=== PATIENT | male | born 1965 | race Caucasian/White ===

== ENCOUNTER 2017-08-15 15:59 | Inpatient (IN) | payer OTHER ==
[~2017-08-15] VITALS: Ht 157.5 cm; Wt 81.0 kg
[2017-08-15 17:30] LABS: HEMATOCRIT 52.9 % (39.0-50.0); HEMOGLOBIN 18.4 g/dl (14.0-18.0); IMMATURE GRANULOCYTES 1.3 % (0.0-1.0); MEAN CELL VOLUME 88.2 fL CALC (80.0-100.0); MEAN CORPUSCULAR HGB 30.7 pG CALC (26.0-32.0); MEAN CORPUSCULAR HGB CONC 34.8 g/L CALC (32.0-36.0); PLATELET COUNT 333 thou/uL (130-400)
[2017-08-15 17:42] LABS: MANUAL DIFFERENTIAL YES
[2017-08-15 17:59] LABS: BAND 17 % (0-8)
[2017-08-15 18:02] LABS: ALBUMIN 3.8 g/dL (3.2-5.0); ALKALINE PHOSPHATASE 136 u/l (38-126); AMYLASE 34 u/l (30-110); ANION GAP 13 (6-22 (CALC)); BILIRUBIN, TOTAL 1.9 mg/dL (0.0-1.4); BUN 15 mg/dL (9-20); BUN/CREATININE RATIO 12 (12-20 (CALC)); CALCIUM 9.3 mg/dL (8.4-10.2); CARBON DIOXIDE 35 mmol/l (22-30); CHLORIDE 88 mmol/l (95-108); CREATININE 1.3 mg/dL (0.7-1.3); GFR 58 ML/MIN (>=60 (CALC)); GFR FOR AFR.AMER. > 60 ML/MIN (>=60 (CALC)); GLUCOSE 114 mg/dL (75-110); LIPASE 13 u/l (23-300); SGOT/AST 36 u/l (17-59); SGPT/ALT 21 u/l (21-72); SODIUM 133 mmol/l (137-146); TOTAL PROTEIN 8.7 g/dL (6.3-8.2)
[2017-08-15 20:00] VITALS: BP 93/52
[2017-08-15 21:50] LABS: URINE BILIRUBIN - DIPSTICK NEGATIVE (NEGATIVE); URINE BLOOD DIPSTICK LARGE (NEGATIVE); URINE CLARITY CLEAR; URINE GLUCOSE - DIPSTICK NEGATIVE (NEGATIVE); URINE KETONE NEGATIVE (NEGATIVE); URINE LEUK ESTERASE NEGATIVE (NEGATIVE); URINE NITRITE - DIPSTICK NEGATIVE (Negative); URINE PH 5.5 (4.5-8.0); URINE PROTEIN - DIPSTICK >=300 mg/dL (NEG-TRACE)
[2017-08-15 21:52] LABS: URINE COLOR DK. YELLOW
[2017-08-15 21:56] LABS: COCAINE NEGATIVE (NEGATIVE); URINE RBC TNTC RBC/hpf (0-5); URINE SQUAMOUS EPITHELIAL CELL FEW EPI/hpf (0-FEW)
[2017-08-15 21:57] LABS: BARBITURATES NEGATIVE (NEGATIVE); METHADONE NEGATIVE (NEGATIVE); OXCYCODONE NEGATIVE (NEGATIVE); TETRAHYDROCANNABIONOL POSITIVE (NEGATIVE); TRICYLIC ANTIDEPRESSANTS NEGATIVE (NEGATIVE)
[2017-08-16] VITALS: BP 110/70
[2017-08-16 04:00] VITALS: BP 91/64
[2017-08-16 06:04] LABS: HEMATOCRIT 47.5 % (39.0-50.0); HEMOGLOBIN 16.5 g/dl (14.0-18.0); IMMATURE GRANULOCYTES 1.2 % (0.0-1.0); MEAN CELL VOLUME 89.5 fL CALC (80.0-100.0); MEAN CORPUSCULAR HGB 31.1 pG CALC (26.0-32.0); MEAN CORPUSCULAR HGB CONC 34.7 g/L CALC (32.0-36.0); NEUT# 18.86 thou/uL (1.82-7.42); RED BLOOD COUNT 5.31 mill/uL (4.70-6.10); RED CELL DISTRI WIDTH 14.1 % (11.5-15.5)
[2017-08-16 06:11] LABS: ANION GAP 14 (6-22 (CALC)); BUN 17 mg/dL (9-20); BUN/CREATININE RATIO 16 (12-20 (CALC)); CALCIUM 8.5 mg/dL (8.4-10.2); CARBON DIOXIDE 29 mmol/l (22-30); CHLORIDE 94 mmol/l (95-108); CREATININE 1.1 mg/dL (0.7-1.3); GFR > 60 ML/MIN (>=60 (CALC)); GFR FOR AFR.AMER. > 60 ML/MIN (>=60 (CALC)); GLUCOSE 209 mg/dL (75-110); POTASSIUM 3.8 mmol/l (3.5-5.1); SODIUM 133 mmol/l (137-146)
[2017-08-16 07:34] VITALS: BP 106/76
[2017-08-16 11:56] VITALS: BP 103/72
[2017-08-16 16:26] VITALS: BP 98/66
[2017-08-16 19:00] VITALS: BP 102/65
[2017-08-17] VITALS: BP 114/74
[2017-08-17 04:00] VITALS: BP 114/74
[2017-08-17 05:54] LABS: HEMATOCRIT 45.9 % (39.0-50.0); HEMOGLOBIN 15.6 g/dl (14.0-18.0); IMMATURE GRANULOCYTES 1.3 % (0.0-1.0); MEAN CELL VOLUME 89.6 fL CALC (80.0-100.0); MEAN CORPUSCULAR HGB 30.5 pG CALC (26.0-32.0); NEUT# 20.26 thou/uL (1.82-7.42); RED BLOOD COUNT 5.12 mill/uL (4.70-6.10); RED CELL DISTRI WIDTH 14.2 % (11.5-15.5)
[2017-08-17 05:57] LABS: ANION GAP 15 (6-22 (CALC)); BUN 21 mg/dL (9-20); BUN/CREATININE RATIO 20 (12-20 (CALC)); CALCIUM 8.6 mg/dL (8.4-10.2); CARBON DIOXIDE 31 mmol/l (22-30); CHLORIDE 93 mmol/l (95-108); GFR > 60 ML/MIN (>=60 (CALC)); GFR FOR AFR.AMER. > 60 ML/MIN (>=60 (CALC)); GLUCOSE 178 mg/dL (75-110); POTASSIUM 3.5 mmol/l (3.5-5.1); SODIUM 135 mmol/l (137-146)
[2017-08-17 07:17] VITALS: BP 97/72
[2017-08-17] MEDS ORDERED: ASPIRIN ADULT L81 M2 PO (09:47)
[2017-08-17] MEDS ORDERED: IPRATROPIU0.5 MG/3 M IN (09:47)
[2017-08-17] MEDS ORDERED: LEVAQUIN750 MG PO (09:49)
[2017-08-17] MEDS ORDERED: PREDNISONE10 MG PO (09:49)
== END 2017-08-17 10:21 | disposition home or self-care (01) | DRG 190 ==
LOC: ED 15:59 → ED-I 18:20 → ED 18:41 → MS2 18:42
PROVIDERS: Family Medicine; Nurse Practitioner Family; ADMIT Internal Medicine; ATTEND Internal Medicine
DX: J44.0 Chronic obstructive pulmonary disease with (acute) lower respiratory infection (principal); J18.9 Pneumonia, unspecified organism; E87.1 Hypo-osmolality and hyponatremia; J44.1 Chronic obstructive pulmonary disease with (acute) exacerbation; E11.9 Type 2 diabetes mellitus without complications; I25.10 Atherosclerotic heart disease of native coronary artery without angina pectoris; F17.210 Nicotine dependence, cigarettes, uncomplicated; I10 Essential (primary) hypertension; E86.0 Dehydration; E78.5 Hyperlipidemia, unspecified; E87.6 Hypokalemia; Z87.820 Personal history of traumatic brain injury; Z79.84 Long term (current) use of oral hypoglycemic drugs; Z87.01 Personal history of pneumonia (recurrent); Z98.61 Coronary angioplasty status
CPT/HCPCS: J0692; J1650

== ENCOUNTER 2017-10-05 15:01 | Emergency (ER) | payer OTHER ==
[~2017-10-05] VITALS: Ht 157.5 cm; Wt 86.2 kg
[~2017-10-05 15:01] MED LIST: ASPIRIN ADULT L81 M2 PO; IPRATROPIU0.5 MG/3 M IN; LEVAQUIN750 MG PO; PREDNISONE10 MG PO
[2017-10-05] MEDS ORDERED: PREDNISONE10 MG PO (15:17)
[2017-10-05] MEDS ORDERED: INHALER IN (15:18)
[2017-10-05] MEDS ORDERED: NAPROSYN500 MG PO (15:32)
[2017-10-05] MEDS ORDERED: ZITHROMAX250 MG PO (15:32)
[2017-10-05 15:39] VITALS: BP 116/60
== END 2017-10-05 15:40 | disposition home or self-care (01) | DRG 153 ==
LOC: ED 15:01
DX: J02.9 Acute pharyngitis, unspecified (principal); R05 Cough; R50.9 Fever, unspecified; R51 Headache

== ENCOUNTER 2017-10-15 16:04 | Emergency (ER) | payer OTHER ==
[~2017-10-15] VITALS: Ht 157.5 cm; Wt 80.0 kg
[~2017-10-15 16:04] MED LIST changes: +INHALER IN; +NAPROSYN500 MG PO; +ZITHROMAX250 MG PO
[2017-10-15 16:44] LABS: HEMATOCRIT 46.1 % (39.0-50.0); HEMOGLOBIN 15.5 g/dl (14.0-18.0); IMMATURE GRANULOCYTES 0.6 % (0.0-1.0); MEAN CELL VOLUME 92.4 fL CALC (80.0-100.0); MEAN CORPUSCULAR HGB 31.1 pG CALC (26.0-32.0); MEAN CORPUSCULAR HGB CONC 33.6 g/L CALC (32.0-36.0); NEUT# 14.44 thou/uL (1.82-7.42); RED BLOOD COUNT 4.99 mill/uL (4.70-6.10); RED CELL DISTRI WIDTH 16.2 % (11.5-15.5)
[2017-10-15 17:09] LABS: ALBUMIN 3.6 g/dL (3.2-5.0); ALKALINE PHOSPHATASE 71 u/l (38-126); ANION GAP 17 (6-22 (CALC)); BILIRUBIN, TOTAL 0.9 mg/dL (0.0-1.4); BUN 11 mg/dL (9-20); BUN/CREATININE RATIO 9 (12-20 (CALC)); CARBON DIOXIDE 30 mmol/l (22-30); CHLORIDE 92 mmol/l (95-108); CREATININE 1.2 mg/dL (0.7-1.3); GFR > 60 ML/MIN (>=60 (CALC)); GFR FOR AFR.AMER. > 60 ML/MIN (>=60 (CALC)); GLUCOSE 147 mg/dL (75-110); POTASSIUM 3.7 mmol/l (3.5-5.1); SGOT/AST 22 u/l (17-59); SGPT/ALT 22 u/l (21-72); SODIUM 135 mmol/l (137-146); TOTAL PROTEIN 7.1 g/dL (6.3-8.2)
[2017-10-15 17:21] LABS: URINE BILIRUBIN - DIPSTICK NEGATIVE (NEGATIVE); URINE BLOOD DIPSTICK LARGE (NEGATIVE); URINE COLOR YELLOW; URINE GLUCOSE - DIPSTICK NEGATIVE (NEGATIVE); URINE KETONE NEGATIVE (NEGATIVE); URINE LEUK ESTERASE NEGATIVE (NEGATIVE); URINE NITRITE - DIPSTICK NEGATIVE (Negative); URINE PH 5.5 (4.5-8.0); URINE PROTEIN - DIPSTICK 100 mg/dL (NEG-TRACE)
[2017-10-15 17:21] LABS: MYOGLOBIN 77 ng/mL (0 - 121)
[2017-10-15 17:27] LABS: URINE CLARITY CLEAR
[2017-10-15 17:49] LABS: URINE RBC TNTC RBC/hpf (0-5); URINE SQUAMOUS EPITHELIAL CELL FEW EPI/hpf (0-FEW)
[2017-10-15] MEDS ORDERED: LEVAQUIN750 M1 PO (18:57)
[2017-10-15 19:04] VITALS: BP 132/80
== END 2017-10-15 19:12 | disposition home or self-care (01) | DRG 192 ==
LOC: ED 16:04
PROVIDERS: Emergency Medicine
DX: J44.0 Chronic obstructive pulmonary disease with (acute) lower respiratory infection (principal); F17.210 Nicotine dependence, cigarettes, uncomplicated; J20.9 Acute bronchitis, unspecified; J44.1 Chronic obstructive pulmonary disease with (acute) exacerbation; R06.02 Shortness of breath; R05 Cough; R00.0 Tachycardia, unspecified; R50.9 Fever, unspecified

== ENCOUNTER 2018-08-03 19:56 | Emergency (ER) | payer OTHER ==
[~2018-08-03] VITALS: Ht 157.5 cm; Wt 81.8 kg
[~2018-08-03 19:56] MED LIST changes: +CARVEDILOL6.25 MG PO; +FUROSEMIDE40 MG PO; +LEVAQUIN750 M1 PO; +LOSARTAN POTASS25 MG PO; +METFORMIN500 M2 PO; +MICRO-K10 MEQ PO; +PROVENTIL HFA IN; +SYMBICORT1 AE1 IN
--- NOTE | 2018-08-03 20:26 | NUR ---
BREATHING TREATMENT GIVEN USING MOUTH PEICE. BREATHING TECH. FOR GOOD DEPOSITION TO THE LUNGS.
[2018-08-03 20:30] LABS: HEMATOCRIT 47.8 % (39.0-50.0); HEMOGLOBIN 16.6 g/dl (14.0-18.0); IMMATURE GRANULOCYTES 0.7 % (0.0-5.0); MEAN CELL VOLUME 86.6 fL CALC (80.0-100.0); MEAN CORPUSCULAR HGB 30.1 pG CALC (26.0-32.0); MEAN CORPUSCULAR HGB CONC 34.7 g/L CALC (32.0-36.0); NEUT# 15.18 thou/uL (1.82-7.42); RED BLOOD COUNT 5.52 mill/uL (4.70-6.10); RED CELL DISTRI WIDTH 13.9 % (11.5-15.5)
[2018-08-03] MEDS ORDERED: PREDNISONE10 MG PO (21:13)
[2018-08-03] MEDS ORDERED: DOXYCYCL HYC100 MG PO (21:13)
[2018-08-03 21:45] VITALS: BP 114/73
== END 2018-08-03 21:51 | disposition home or self-care (01) ==
LOC: ED 19:56
PROVIDERS: Family Medicine
DX: J44.1 Chronic obstructive pulmonary disease with (acute) exacerbation (principal); E11.9 Type 2 diabetes mellitus without complications; I10 Essential (primary) hypertension; I25.2 Old myocardial infarction; Z95.0 Presence of cardiac pacemaker; Z87.891 Personal history of nicotine dependence; R06.02 Shortness of breath; R05 Cough

== ENCOUNTER 2019-07-31 14:43 | Inpatient (IN) | payer OTHER ==
[~2019-07-31] VITALS: Ht 157.5 cm; Wt 102.6 kg
[~2019-07-31 14:43] MED LIST changes: +DOXYCYCL HYC100 MG PO; -FUROSEMIDE40 MG PO; +LASIX40 MG PO
--- NOTE | 2019-07-31 14:43 | NUR ---
PATIENT TO ROOM VIA WHEELCHAIR AND PHYSICIAN AT BEDSIDE FOR EVAL
--- NOTE | 2019-07-31 14:45 | NUR ---
PT REFUSES TO WEAR A GOWN.
--- NOTE | 2019-07-31 15:00 | NUR ---
PT PRESENTS SOB. PAIN 0/10. AUDITORY WHEEZING DETECTED. LUNGS WHEEZING BILATERALLY. ABDOMEN NON TENDER, DISTENDED. INTERCOASTAL RETRACTIONS NOTED. PT IN TRIPOD POSITION. PT IN PT PRESENTS WITH A O2SAT OF 89%. EKG DONE AT 1445. MD IN ROOM. CALL LIGHT WITHIN REACH WILL CONTINUE TO MONITOR.
[2019-07-31 15:11] LABS: HEMATOCRIT 47.8 % (39.0-50.0); HEMOGLOBIN 16.2 g/dl (14.0-18.0); IMMATURE GRANULOCYTES 0.6 % (0.0-5.0); MEAN CELL VOLUME 86.1 fL CALC (80.0-100.0); MEAN CORPUSCULAR HGB 29.2 pG CALC (26.0-32.0); MEAN CORPUSCULAR HGB CONC 33.9 g/L CALC (32.0-36.0); NEUT# 13.75 thou/uL (1.82-7.42); RED BLOOD COUNT 5.55 mill/uL (4.70-6.10); RED CELL DISTRI WIDTH 13.9 % (11.5-15.5)
--- NOTE | 2019-07-31 15:20 | NUR ---
PT LUNG SOUNDS WHEEZING BILATERALLY. PT EFFORT IN BREATHING DECREASED. PT HOB ELEVATED AND DENIES ANY NEEDS AT THIS TIME.
--- NOTE | 2019-07-31 15:40 | NUR ---
PT AOX4 RESTING ON STRETCHER. CALL LIGHT WITHIN REACH. PLAN OF CARE DISCUSSED WITH PT AND WAIT TIME. WILL CONTINUE TO MONITOR.
[2019-07-31] MEDS ORDERED: CARVEDILOL12.5 MG PO (15:41)
[2019-07-31] MEDS ORDERED: PROVENTIL108 MCG/AC IN (15:41)
[2019-07-31] MEDS ORDERED: ASPIRIN 8181 MG PO (15:43)
[2019-07-31 15:49] LABS: ACT PARTIAL THROMBO TIME 27.3 SECONDS (20.0-32.5); PROTHROMBIN TIME 10.4 SECONDS (9.0-12.5)
[2019-07-31 16:02] LABS: ALKALINE PHOSPHATASE 88 u/l (38-126); BUN 10 mg/dL (9-20); BUN/CREATININE RATIO 10 (12-20 (CALC)); CHLORIDE 84 mmol/l (95-108); GFR > 60 ML/MIN (>=60 (CALC)); GFR FOR AFR.AMER. > 60 ML/MIN (>=60 (CALC)); LIPASE 56 u/l (23-300); MAGNESIUM 1.9 mg/dL (1.6-2.3); SGOT/AST 19 u/l (17-59); SODIUM 132 mmol/l (137-146); TOTAL PROTEIN 8.1 g/dL (6.3-8.2)
[2019-07-31 16:03] LABS: ALBUMIN 4.5 g/dL (3.2-5.0); ANION GAP 16 (6-22 (CALC)); CARBON DIOXIDE 35 mmol/l (22-30); POTASSIUM 3.1 mmol/l (3.5-5.1)
--- NOTE | 2019-07-31 16:15 | NUR ---
PT REPORTS BREATHING IS "MUCH BETTER" RESPIRATORY RATE UNLABORED AT 20 BPM. PT DENIES ANY NEEDS AND IS AWARE OF PENDING RESULTS AND WAIT TIME. CALL DILL WITHIN REACH.
--- NOTE | 2019-07-31 16:40 | NUR ---
PT AOX4 RESTING ON STRETCHER. PT DENIES ANY PAIN AT THIS POINT. WHEEZING DETECTED IN LUNGS BILATERALLY. PT STATES FEELING BETTER.
[2019-07-31 16:50] LABS: URINE BILIRUBIN - DIPSTICK NEGATIVE (NEGATIVE); URINE BLOOD DIPSTICK TRACE-INTACT (NEGATIVE); URINE COLOR YELLOW; URINE GLUCOSE - DIPSTICK 250 mg/dL (NEGATIVE); URINE KETONE NEGATIVE (NEGATIVE); URINE LEUK ESTERASE NEGATIVE (NEGATIVE); URINE NITRITE - DIPSTICK NEGATIVE (Negative); URINE PH 5.5 (4.5-8.0); URINE PROTEIN - DIPSTICK NEGATIVE (NEG-TRACE); URINE SPECIFIC GRAVITY 1.015
--- NOTE | 2019-07-31 17:10 | NUR ---
PT AOX4 RESTING ON STRETCHER REQUESTING FOOD. WE MENTIONED THAT DINNER WILL BE SERVED ONCE HE IS TRANSFERED TO [facility] SHORTLY. PT DEMONSTRATED UNDERSTANDING AND DENIED ANY FURTHER NEEDS. WILL CONTINUE TO MONITOR.
--- NOTE | 2019-07-31 17:56 | NUR ---
REPORT TONY KRISHNAMURTHY IN MED SURG.
[2019-07-31 18:25] VITALS: BP 123/76
--- NOTE | 2019-07-31 18:25 | NUR ---
PT CAME FROM ER VIA WHEELCHAIR BY DIGNA. PT AMBULATED TO THE SCALE AND THEN TO BED. VS OBTAIN. TELE IN PLACE. SAFETY PRECAUTIONS REINFORCED AND CALL LIGHT IN REACH.
--- NOTE | 2019-07-31 18:30 | NUR ---
PT DEPARTED TO MED SURG IN WHEELCHAIR. ASSUMED CARE TO YESSY.
[2019-07-31 19:10] VITALS: BP 110/69
--- NOTE | 2019-07-31 19:40 | NUR ---
PT AWAKE SITTING IN BED FULLY DRESSED. PT IS PLEASANT. PT STATES HE WANT TO SIGN OUT AMA RIGHT NOW. PT STATES HE IS FINE AND IS LEAVING. ENCOURAGED PT TO STAY AT LEAST TILL MORNING . PT STATES I APPRECIATE YOUR CONCERN BUT I AM GOING HOME. FAMILY AT BEDSIDE AND THEY STATED HE HAS DONE THIS BEFORE JUST GIVE HIM THE AMA FORM TO SIGN. VSS. [id number], 110/69, O2 SAT 99% ON R/A. LUNGS REVEAL DIMINISHED BREATH SOUNDS. ABD SOFT WITH BOWEL SOUNDS PRESENT. NO LOWER EXT EDEMA NOTED. RESP EVEN AND UNLABORED. NO DISTRESS NOTED. PT DENIES ANY PAIN OR DISCOMFORT. PT INSTRUCTED TO PLEASE COME TO E.R IF ANY SHORTNESS OF BREATH, CHEST PAIN, CHEST TIGHTNESS, FEVER OR CHILLS. PT STATES HE UNDERSTANDS AND WILL RETURN TO THE E.R. IF HE HAS ANY OF THOSE SYMPTOMS. HEPLOCK D/LESIA WITH CATH INTACT. PT HAS ALL HIS BELONGINGS PACKED. UNABLE TO DO ADMISSION ASSESSMENT BECAUSE PT STATES HE IS LEAVING AND ADMISSION ASSESSMENT HE STATES HE IS NOT STAYING FOR IT TO BE DONE. E.R.. CALLED AND INFORMED PT IS LEAVING AMA AND TELE TO BE REMOVED. FAMILY AT BEDSIDE READY TO DRIVE PT HOME. PT SIGNED AMA FORM AND FORM PLACED ON CHART. WILL CALL AND INFORM M.D.
--- NOTE | 2019-07-31 19:50 | NUR ---
TELE REMOVED. HEPLOCK REMOVED. PT LEAVING AMA AMBULATORY IN STABLE CONDITION WITH HIS FAMILY AND BELONGINGS. TOP CAGER DELANEY STRONG RN INFORMED PT SIGNED OUT AMA.
--- NOTE | 2019-07-31 19:55 | NUR ---
DR RAWLS CALLED AND INFORMED PT SIGNED OUT AMA WITH HIS FAMILY IN STABLE CONDITION. INFORMED PT ENCOURAGED TO STAY BUT REFUSES. NO ORDERS RECEIVED AT THIS TIME.
== END 2019-07-31 19:50 | disposition left against medical advice (07) | DRG 192 ==
LOC: ED 14:43 → ED-I 16:20 → ED 16:33 → MS2 16:34
PROVIDERS: ADMIT Internal Medicine; ATTEND Internal Medicine
DX: J44.1 Chronic obstructive pulmonary disease with (acute) exacerbation (principal); R09.02 Hypoxemia; I10 Essential (primary) hypertension; E11.9 Type 2 diabetes mellitus without complications; I25.2 Old myocardial infarction; Z95.0 Presence of cardiac pacemaker; Z95.5 Presence of coronary angioplasty implant and graft

== ENCOUNTER 2019-08-29 18:49 | Emergency (ER) | payer OTHER ==
[~2019-08-29] VITALS: Ht 157.5 cm; Wt 102.0 kg
[~2019-08-29 18:49] MED LIST changes: +ASPIRIN 8181 MG PO; +CARVEDILOL12.5 MG PO; +PROVENTIL108 MCG/AC IN
[2019-08-29 19:31] LABS: HEMATOCRIT 45.4 % (39.0-50.0); HEMOGLOBIN 15.2 g/dl (14.0-18.0); IMMATURE GRANULOCYTES 0.4 % (0.0-5.0); MEAN CELL VOLUME 85.7 fL CALC (80.0-100.0); MEAN CORPUSCULAR HGB 28.7 pG CALC (26.0-32.0); MEAN CORPUSCULAR HGB CONC 33.5 g/L CALC (32.0-36.0); RED BLOOD COUNT 5.3 mill/uL (4.70-6.10); RED CELL DISTRI WIDTH 14.3 % (11.5-15.5)
[2019-08-29] MEDS ORDERED: SYMBICORT1 AE1 IN (19:45)
[2019-08-29] MEDS ORDERED: ZETIA10 MG PO (19:46)
[2019-08-29] MEDS ORDERED: ATORVASTATIN CA40 MG PO (19:46)
[2019-08-29 19:59] LABS: ALBUMIN 4.5 g/dL (3.2-5.0); ALKALINE PHOSPHATASE 92 u/l (38-126); ANION GAP 16 (6-22 (CALC)); BILIRUBIN, TOTAL 0.6 mg/dL (0.0-1.4); BUN 14 mg/dL (9-20); BUN/CREATININE RATIO 14 (12-20 (CALC)); CARBON DIOXIDE 33 mmol/l (22-30); CHLORIDE 90 mmol/l (95-108); GFR > 60 ML/MIN (>=60 (CALC)); GFR FOR AFR.AMER. > 60 ML/MIN (>=60 (CALC)); POTASSIUM 3.7 mmol/l (3.5-5.1); SGOT/AST 17 u/l (17-59); SODIUM 135 mmol/l (137-146); TOTAL PROTEIN 7.7 g/dL (6.3-8.2)
[2019-08-29 20:50] LABS: ACT PARTIAL THROMBO TIME 24.4 SECONDS (20.0-32.5); INTERNATIONAL NORMALIZED RATIO 0.9 RATIO (0.7-1.3); PROTHROMBIN TIME 9.8 SECONDS (9.0-12.5)
[2019-08-29 23:00] VITALS: BP 133/68
== END 2019-08-29 23:11 | disposition short-term general hospital (02) ==
LOC: ED 18:49
DX: R05 Cough (principal); R04.2 Hemoptysis; R91.8 Other nonspecific abnormal finding of lung field; I10 Essential (primary) hypertension; E11.9 Type 2 diabetes mellitus without complications; J44.9 Chronic obstructive pulmonary disease, unspecified; I25.2 Old myocardial infarction; Z95.0 Presence of cardiac pacemaker; Z95.5 Presence of coronary angioplasty implant and graft; Z79.899 Other long term (current) drug therapy
CPT/HCPCS: Q9967